=== PATIENT | female | born 1955 | race Caucasian/White ===

== ENCOUNTER → 2016-10-12 | Outpatient (CLI) | payer BC | LOC: BMCIMAGING 16:40 | PROVIDERS: ATTEND Family Medicine | DX: S52.512A Displaced fracture of left radial styloid process, initial encounter for closed fracture (principal) ==

== ENCOUNTER → 2016-11-21 | Outpatient (CLI) | payer BC | LOC: BMCIMAGING 09:56 | PROVIDERS: ATTEND Physician Assistant | DX: S52.512D Displaced fracture of left radial styloid process, subsequent encounter for closed fracture with routine healing (principal) ==

== ENCOUNTER → 2016-12-28 | Outpatient (CLI) | payer BC | LOC: BMCIMAGING 08:25 | PROVIDERS: ATTEND Physician Assistant | DX: S52.512D Displaced fracture of left radial styloid process, subsequent encounter for closed fracture with routine healing (principal); X58.XXXD Exposure to other specified factors, subsequent encounter ==

== ENCOUNTER → 2017-08-07 | Outpatient (CLI) | payer BC | LOC: BMCIMAGING 15:21 | PROVIDERS: ATTEND Internal Medicine | DX: Z13.820 Encounter for screening for osteoporosis (principal); M85.89 Other specified disorders of bone density and structure, multiple sites; Z78.0 Asymptomatic menopausal state ==